=== PATIENT | male | born 1980 | race Caucasian/White ===

== ENCOUNTER 2023-10-27 12:19 | Emergency (ER) | payer BC ==
[~2023-10-27] VITALS: Ht 177.8 cm; Wt 97.5 kg
[2023-10-27] MEDS ORDERED: Bacitracin Zinc 14 GM TUBE T ONE (13:00)
[2023-10-27] MEDS ORDERED: BACITRACIN28.4 GM T (13:23)
[2023-10-27] MEDS ORDERED: XEROFORM PETRO1 EAC2 T (13:23)
== END 2023-10-27 13:34 | disposition home or self-care (01) ==
LOC: ED 12:19
DX: T21.22XA Burn of second degree of abdominal wall, initial encounter (principal); T31.0 Burns involving less than 10% of body surface; S00.33XA Contusion of nose, initial encounter; V89.2XXA Person injured in unspecified motor-vehicle accident, traffic, initial encounter; X08.8XXA Exposure to other specified smoke, fire and flames, initial encounter; Y93.89 Activity, other specified; Y92.410 Unspecified street and highway as the place of occurrence of the external cause; Y99.8 Other external cause status

== ENCOUNTER → 2024-05-06 | Outpatient (CLI) | payer OTHER, BC ==
[~2024-05-06] MED LIST: BACITRACIN28.4 GM T; XEROFORM PETRO1 EAC2 T
== END | disposition home or self-care (01) ==
LOC: ORTHO 03:06
PROVIDERS: ATTEND Orthopaedic Surgery
DX: M25.512 Pain in left shoulder (principal)

== ENCOUNTER → 2024-08-28 | Outpatient (CLI) | payer BC | END | disposition home or self-care (01) | LOC: MRI 00:44 | PROVIDERS: ATTEND Orthopaedic Surgery | DX: M75.42 Impingement syndrome of left shoulder (principal) ==